=== PATIENT | female | born 1945 | race Caucasian/White ===

== ENCOUNTER 2020-12-06 10:57 | Inpatient (IN) | payer MEDICARE ==
[~2020-12-06] VITALS: Ht 165.1 cm; Wt 54.4 kg
[~2020-12-06 10:57] MED LIST: BENTYL 10MG CAP10 MG PO; CELEBREX200 MG PO; LIPITOR TAB 2020 MG PO; LORTAB 5-325 M1 EACH PO; NEXIUM40 MG PO; PRESERVISION A1 EAC1 PO; SYNTHROID112 MCG PO; VITAMIN B-121000 MCG PO; VITAMIN D1000 UNIT PO; ZOFRAN ODT 4 MG4 MG PO; ZOFRAN4 MG PO
[2020-12-06 11:33] LABS: HEMOGLOBIN 13.2 gm/dl (12.3-15.3); RED BLOOD COUNT 4.28 M/UL (4.00-5.10); WHITE BLOOD COUNT 8.4 K/UL (4.5-11.0)
[2020-12-06 11:56] LABS: BUN/CREATININE RATIO 25 (0-10)
[2020-12-06] MEDS ORDERED: LINZESS145 MCG PO (15:04)
[2020-12-06] MEDS ORDERED: CALCIUM500 MG PO (16:59)
[2020-12-06] MEDS ORDERED: DAILY VITE1 EACH PO (16:59)
[2020-12-06] MEDS ORDERED: ESTRACE42.5 GM VG (22:12)
--- NOTE | 2020-12-07 01:27 | NUR ---
12/06/201949 PART 2 OF ADULT ASSESSMENT WAS DONE AT THIS TIME. WAS UNABLE TO CHANGE TIME ON IT.
[2020-12-07 03:27] LABS: HEMOGLOBIN 13.8 gm/dl (12.3-15.3); RED BLOOD COUNT 4.51 M/UL (4.00-5.10)
[2020-12-07 04:25] LABS: BUN/CREATININE RATIO 17 (0-10)
[2020-12-08 04:59] LABS: HEMOGLOBIN 13.1 gm/dl (12.3-15.3); RED BLOOD COUNT 4.26 M/UL (4.00-5.10); WHITE BLOOD COUNT 10.6 K/UL (4.5-11.0)
[2020-12-08 05:39] LABS: BUN/CREATININE RATIO 20 (0-10)
[2020-12-08 05:52] LABS: GAMMA GLUTAMYL TRANSPEPTIDASE 785 U/L (7-64)
[2020-12-09 04:26] LABS: HEMOGLOBIN 12.9 gm/dl (12.3-15.3); RED BLOOD COUNT 4.18 M/UL (4.00-5.10); WHITE BLOOD COUNT 13.1 K/UL (4.5-11.0)
[2020-12-09 04:45] LABS: BUN/CREATININE RATIO 22 (0-10)
[2020-12-10 04:23] LABS: HEMOGLOBIN 12.5 gm/dl (12.3-15.3); RED BLOOD COUNT 4.08 M/UL (4.00-5.10)
[2020-12-10 04:25] LABS: BUN/CREATININE RATIO 19 (0-10)
== END 2020-12-10 20:53 | disposition home or self-care (01) | DRG 439 ==
LOC: ER1 10:57 → M/S 14:56 → CDU 14:56 → M/S 18:30
PROVIDERS: Family Medicine; ADMIT Internal Medicine
DX: K85.90 Acute pancreatitis without necrosis or infection, unspecified (principal); R17 Unspecified jaundice; K57.10 Diverticulosis of small intestine without perforation or abscess without bleeding; K21.9 Gastro-esophageal reflux disease without esophagitis; E03.9 Hypothyroidism, unspecified; I10 Essential (primary) hypertension; E11.9 Type 2 diabetes mellitus without complications; I25.10 Atherosclerotic heart disease of native coronary artery without angina pectoris; F17.200 Nicotine dependence, unspecified, uncomplicated; F41.9 Anxiety disorder, unspecified; M19.90 Unspecified osteoarthritis, unspecified site; K44.9 Diaphragmatic hernia without obstruction or gangrene; E86.0 Dehydration; E78.5 Hyperlipidemia, unspecified; Z83.3 Family history of diabetes mellitus; Z90.710 Acquired absence of both cervix and uterus; Z98.42 Cataract extraction status, left eye; Z98.41 Cataract extraction status, right eye; Z90.49 Acquired absence of other specified parts of digestive tract; Z80.9 Family history of malignant neoplasm, unspecified; Z82.5 Family history of asthma and other chronic lower respiratory diseases; Z82.49 Family history of ischemic heart disease and other diseases of the circulatory system; Z79.899 Other long term (current) drug therapy; E87.6 Hypokalemia
CPT/HCPCS: 36415; 74181; 80048; 80053; 80061; 80076; 81001; 82150; 82977; 83605; 83690; 83735; 84132; 85025; 85027; 93005; 96374; 96375; 96376; 97162; 97166; 99285; J1650; J1885; J2270; J2405; J3480; J7030; Q9967; U0002

== ENCOUNTER 2021-01-27 07:44 | Emergency (ER) | payer MEDICARE ==
[~2021-01-27 07:44] MED LIST changes: +CALCIUM500 MG PO; +DAILY VITE1 EACH PO; +ESTRACE42.5 GM VG; +LINZESS145 MCG PO
[2021-01-27 08:45] LABS: HEMOGLOBIN 13.4 gm/dl (12.3-15.3); RED BLOOD COUNT 4.26 M/UL (4.00-5.10); WHITE BLOOD COUNT 5.1 K/UL (4.5-11.0)
[2021-01-27 09:06] LABS: BUN/CREATININE RATIO 21 (0-10)
== END 2021-01-27 11:56 | disposition home or self-care (01) ==
LOC: ER1 07:44
PROVIDERS: Physician Assistant
DX: R10.11 Right upper quadrant pain (principal); R10.12 Left upper quadrant pain; R11.0 Nausea; E78.5 Hyperlipidemia, unspecified; Z90.49 Acquired absence of other specified parts of digestive tract; Z90.89 Acquired absence of other organs; Z90.710 Acquired absence of both cervix and uterus
CPT/HCPCS: 71045; 80053; 82550; 82553; 83605; 83690; 83874; 84484; 85025; 93005; 99284; J2270; J2405; J7030; Q9967

== ENCOUNTER → 2022-04-10 | Outpatient (CLI) | payer MEDICARE ==
[~2022-04-10] MED LIST changes: +AREDS PO; +CALCIUM PO; -CALCIUM500 MG PO; +COLACE100 MG PO
== END ==
LOC: OPSV2 10:00
DX: Z01.810 Encounter for preprocedural cardiovascular examination (principal); K42.9 Umbilical hernia without obstruction or gangrene; R94.31 Abnormal electrocardiogram [ECG] [EKG]
CPT/HCPCS: 93005

== ENCOUNTER → 2022-04-12 | Day surgery (SDC) | payer MEDICARE | END | disposition home or self-care (01) | LOC: OR 05:49 | PROVIDERS: Surgery | PROC: 0DJD8ZZ Inspection of Lower Intestinal Tract, Via Natural or Artificial Opening Endoscopic (ICD-10-PCS; 2022-04-12) | PROC: 0DB38ZX Excision of Lower Esophagus, Via Natural or Artificial Opening Endoscopic, Diagnostic (ICD-10-PCS; principal; 2022-04-12 07:30) | PROC: 0DB78ZX Excision of Stomach, Pylorus, Via Natural or Artificial Opening Endoscopic, Diagnostic (ICD-10-PCS; 2022-04-12 07:30) | DX: K21.01 Gastro-esophageal reflux disease with esophagitis, with bleeding (principal); K57.31 Diverticulosis of large intestine without perforation or abscess with bleeding; K44.9 Diaphragmatic hernia without obstruction or gangrene; E78.5 Hyperlipidemia, unspecified; Z86.16 Personal history of COVID-19; E53.8 Deficiency of other specified B group vitamins; D64.9 Anemia, unspecified; E03.9 Hypothyroidism, unspecified; Z79.890 Hormone replacement therapy; Z79.899 Other long term (current) drug therapy | CPT/HCPCS: J2001; J2704 ==

== ENCOUNTER → 2022-04-19 | Day surgery (SDC) | payer MEDICARE ==
[~2022-04-19] MED LIST changes: +HYDROCODON-ACE1 EAC4 PO
== END | disposition home or self-care (01) ==
LOC: OR 07:19
PROVIDERS: Surgery
PROC: 0WUF4JZ Supplement Abdominal Wall with Synthetic Substitute, Percutaneous Endoscopic Approach (ICD-10-PCS; principal; 2022-04-19 07:30)
DX: K42.9 Umbilical hernia without obstruction or gangrene (principal); K21.9 Gastro-esophageal reflux disease without esophagitis; K44.9 Diaphragmatic hernia without obstruction or gangrene; M19.90 Unspecified osteoarthritis, unspecified site; E78.5 Hyperlipidemia, unspecified; E03.9 Hypothyroidism, unspecified; Z86.16 Personal history of COVID-19; Z79.890 Hormone replacement therapy; Z79.899 Other long term (current) drug therapy
CPT/HCPCS: C1713; C1781; J0690; J1100; J1170; J1885; J2001; J2250; J2405; J2704; J3010